=== PATIENT | female | born 1950 | race Caucasian/White ===

== ENCOUNTER 2016-11-03 15:28 | Outpatient (CLI) | payer OTHER | END 2016-11-03 20:51 | disposition home or self-care (01) | LOC: SDS 15:28 | PROVIDERS: ATTEND Orthopaedic Surgery | DX: S92.912A Unspecified fracture of left toe(s), initial encounter for closed fracture (principal); X58.XXXA Exposure to other specified factors, initial encounter; Y93.89 Activity, other specified; Y92.89 Other specified places as the place of occurrence of the external cause; Y99.8 Other external cause status ==